=== PATIENT | female | born 1980 | race American Indian/Alaskan Native ===

== ENCOUNTER 2017-07-29 21:41 | Emergency (ER) | payer SELFPAY ==
[2017-07-29] MEDS ORDERED: MOTRIN ONE (22:41)
[2017-07-29] MEDS ORDERED: MOTRIN PO ONE (22:50)
--- NOTE | 2017-07-29 23:56 | XRay Report ---
FINAL REPORT PROCEDURE: XR CHEST ROUTINE 2V TECHNIQUE: PA and lateral chest radiographs were obtained. CPT 60298 HISTORY: cough and fever COMPARISON: No prior studies are available for comparison. FINDINGS: Heart: Normal. Mediastinum/Vessels: Normal. Lungs/Pleural space: Normal. Bony thorax: No acute osseous abnormality. Other: IMPRESSION: Normal examination.
--- NOTE | 2017-07-30 00:45 | Emergency Department Report ---
Minor Respiratory - HPI Chief Complaint: Fever Stated Complaint: HEADACHE FEVER Time Seen by Provider: 07/29/17 23:53 Duration: 2 Days Pain Location: Facial, Throat, Nose Minor Respiratory: Yes Rhinorrhea, Yes Sore Throat, Yes Able to Tolerate Fluids , Yes Cough, Yes Sick Contacts (day care facility, children), Yes Fever, No Ear Pain, No Hemoptysis, No Chest Pain, No Shortness of Breath Other History: Patient is a 37-year-old female presents complaining of cough fever runny nose past 2 days. 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 Patient states intermittent dry nonproductive cough and leg fever. She denies shortness of breath, chest pain, abdominal pain and other problems. She states she is able to eat and drink fluids appropriately. ED Review of Systems ROS: Stated complaint: HEADACHE FEVER Other details as noted in HPI Constitutional: fever. denies: chills Eyes: denies: eye pain, eye discharge, vision change ENT: throat pain, congestion. denies: ear pain Respiratory: cough. denies: shortness of breath, wheezing Cardiovascular: denies: chest pain, palpitations Endocrine: no symptoms reported Gastrointestinal: denies: abdominal pain, nausea, diarrhea Genitourinary: denies: urgency, dysuria, discharge Musculoskeletal: denies: back pain, joint swelling, arthralgia Skin: denies: rash, lesions Neurological: denies: headache, weakness, paresthesias Psychiatric: denies: anxiety, depression Hematological/Lymphatic: denies: easy bleeding, easy bruising ED Past Medical Hx - Past Medical History Hx Hypertension: Yes - Surgical History Additional Surgical History: C section X2. - Social History Smoking Status: Current Some Day Smoker Substance Use Type: None - Medications Home Medications: Home Medications Medication Instructions Recorded Confirmed Last Taken Type D-Methorphan/PE/Acetaminophen 1 each PO TID #30 tablet 07/30/17 Unknown Rx [Tylenol Cold Max Day Caplet] Ibuprofen [Motrin] 800 mg PO Q8HR PRN #30 tablet 07/30/17 Unknown Rx Oseltamivir [Tamiflu] 75 mg PO BID #14 cap 07/30/17 Unknown Rx guaiFENesin/DEXTROMETHORPHAN 1 each PO TID #30 capsule 07/30/17 Unknown Rx [Robitussin Ipasu-Oluok-Rewe Dm] Minor Respiratory Exam - Exam General: Vital signs noted. No distress. Alert and acting appropriately. HEENT: Yes Moist Mucous Membranes, No Pharyngeal Erythema, No Pharyngeal Exudates, No Rhinorrhea, No Conjuctival Injection, No Frontal Tenderness, No Maxillary Tenderness Ear: Neither TM Bulge, Neither TM Erythema, Neither EAC Pain, Neither EAC Discharge Neck: Yes Supple, No Adenopathy Lungs: Yes Good Air Exchange, No Wheezes, No Ronchi, No Stridor, No Cough, No Labored Respirations, No Retractions, No Use of Accessory Muscles, No Other Abnormal Lung Sounds Heart: Yes Regular, No Murmur Abdomen: Yes Normal Bowel Sounds, No Tenderness, No Peritoneal Signs Skin: No Rash, No Edema Neurologic: Alert and oriented, no deficits. Musculoskeletal: Unremarkable. ED Course Vital Signs 07/29/17 22:44 Temperature 101 F H Pulse Rate 107 H Respiratory 18 Rate Blood Pressure 122/77 O2 Sat by Pulse 96 Oximetry ED Medical Decision Making - Radiology Data Radiology results: report reviewed, image reviewed FINAL REPORT PROCEDURE: XR CHEST ROUTINE 2V TECHNIQUE: PA and lateral chest radiographs were obtained. CPT 74096 HISTORY: cough and fever COMPARISON: No prior studies are available for comparison. FINDINGS: Heart: Normal. Mediastinum/Vessels: Normal. Lungs/Pleural space: Normal. Bony thorax: No acute osseous abnormality. Other: IMPRESSION: Normal examination. Transcribed By: [facility] [place] Dictated By: RITO NUNES Electronically Authenticated By: RITO NUNES Signed Date/Time: 07/29/17 9686 - Medical Decision Making 37-year-old male presents with viral syndrome influenza B. Chest x-ray shows no acute findings Fever resolved during the ED stay. Rapid influenza B test be positive and influenza A negative. Discussed findings with patient Discussed contagiousness and keep away from sick contacts as well as the contact. Discussed proper washing had technique and wear a face mask throughout the day Discussed with patient symptomatic relief with [id number] medications. Discussed continue Tylenol and Motrin as needed for fever and pain. Discussed increase fluids and diet intake. Discussed rest much needed. Discussed daily vitamin C for immune booster. Discussed follow-up with comic illustrator in 3-5 days. Patient verbally states she understands and will comply the following instructions and follow-up Vital signs stable. Patient is in no acute distress Critical care attestation.: If time is entered above; I have spent that time in minutes in the direct care of this critically ill patient, excluding procedure time. ED Disposition Clinical Impression: Flu syndrome, Influenza B Disposition: DC-01 TO HOME OR SELFCARE Is pt being admited?: No Does the pt Need Aspirin: No Condition: Stable Instructions: Viral Syndrome (ED), Pharyngitis (ED), Influenza (ED) Additional Instructions: Make sure to follow up with the primary care physician as discussed. Take all your medications as you've been prescribed. If you have any worsening symptoms or develop new symptoms please return to ED immediately. Prescriptions: D-Methorphan/PE/Acetaminophen [Tylenol Cold Max Day Caplet] 1 each PO TID #30 tablet guaiFENesin/DEXTROMETHORPHAN [Robitussin Tvcal-Fzjcc-Bamh Dm] 1 each PO TID #30 capsule Ibuprofen [Motrin] 800 mg PO Q8HR PRN #30 tablet PRN Reason: Pain Oseltamivir [Tamiflu] 75 mg PO BID #14 cap Referrals: ELI FLOREZ MD [Primary Care Provider] - 3-5 Days [facility] [Outside] - 3-5 Days [facility] [Outside] - 3-5 Days [facility] [Outside] - 3-5 Days [facility] [Provider Group] - 3-5 Days Forms: Accompanied Note, Work/School Release Form(ED) Time of Disposition: 00:52
[2017-07-30] MEDS ORDERED: DELTASONE PO ONE (00:55)
[2017-07-30] MEDS: ROBITUSSIN AC PO ONE ×2 (01:10→01:16)
[2017-07-30] MEDS: ROBITUSSIN PO ONE ×2 (01:11→01:16)
[2017-07-30 01:44] VITALS: BP 123/71
== END 2017-07-30 01:43 | disposition home or self-care (01) ==
LOC: ED 21:41
DX: J10.1 Influenza due to other identified influenza virus with other respiratory manifestations (principal); I10 Essential (primary) hypertension; F17.200 Nicotine dependence, unspecified, uncomplicated
CPT/HCPCS: 71046; 87400; 99284; J7512